=== PATIENT | male | born 1975 | race Caucasian/White ===

== ENCOUNTER → 2017-01-16 | Outpatient (CLI) | payer OTHER ==
--- NOTE | 2017-01-16 13:16 | DIAGNOSTIC IMAGING REPORT ---
LEFT HAND MIN 3 VIEWS CLINICAL HISTORY: LEFT HAND PAIN trauma COMPARISON: None. DISCUSSION: Oblique nondisplaced fracture fourth metacarpal. Mild soft tissue edema. No evidence for dislocation. Remaining osseous structures are unremarkable. Moderate soft tissue edema IMPRESSION: Nondisplaced cortical fracture fourth metacarpal. Soft tissue edema. Electronically signed by: Wenceslao Uribe M.D. 01/16/2017 1:15 PM Dictated Date/Time: 01/16/2017 1:14 PM
== END ==
LOC: C.RDSM 13:05
PROVIDERS: ATTEND Physician Assistant
DX: M79.642 Pain in left hand (principal)